=== PATIENT | female | born 1970 | race Caucasian/White ===

== ENCOUNTER 2021-07-04 11:07 | Day surgery (SDC) | payer MEDICAID ==
[2021-06-27 12:03] LABS: BASOPHILS # (AUTO) 0.1 X10'3 (0-0.2); EOSINOPHILS # (AUTO) 0.2 X10'3 (0-0.9); EOSINOPHILS % (AUTO) 2.5 % (0-6); LYMPHOCYTES # (AUTO) 1.8 X10'3 (1.1-4.8); LYMPHOCYTES % (AUTO) 27.6 % (21-51); MEAN CORPUSCULAR HEMOGLOBIN 28.1 PG (27.0-31.0); MEAN CORPUSCULAR HGB CONC 32.6 g/dL (33.0-36.5); MEAN CORPUSCULAR VOLUME 86.3 FL (78-98); MEAN PLATELET VOLUME 7.9 FL (7.4-10.4); MONOCYTES # (AUTO) 0.6 X10'3 (0-0.9); NEUTROPHILS # (AUTO) 3.8 X10'3 (1.8-7.7); NEUTROPHILS % (AUTO) 59.9 % (42-75); PRE OP HEMATOCRIT 37.9 % (35.0-45.0); PRE OP HEMOGLOBIN 12.4 g/dL (12.0-16.0); PRE OP PLATELET COUNT 411 X10'3 (140-440); RED CELL DISTRIBUTION WIDTH 14.2 % (11.5-14.5)
[2021-06-27 12:17] LABS: CLARITY,URINE CLEAR (Clear); COLOR,URINE YELLOW (Yellow); GLUCOSE, URINE NEGATIVE (Neg); KETONES,URINE NEGATIVE (Neg); LEUKOCYTE ESTERASE ,URINE NEGATIVE (Neg); NITRITES, URINE NEGATIVE (Neg); OCCULT BLOOD,URINE NEGATIVE (Neg); PH,URINE 6.5 (4.8-8.0); PROTEIN,URINE NEGATIVE (Neg); UROBILINOGEN,URINE 0.2 E.U/dL (0.2-1.0)
[2021-06-27 12:19] LABS: HCG SERUM QL NEGATIVE
[2021-06-27 12:34] LABS: UA COLLECTION TYPE CLN CATCH MIDSTREAM
[2021-06-27 12:48] LABS: ALBUMIN 3.5 G/DL (3.4-5.0); ALKALINE PHOSPHATASE 97 IU/L (46-116); BLOOD UREA NITROGEN 13 MG/DL (7-18); BUN/CREATININE RATIO 17.8 (6.6-38.0); CHLORIDE 104 MMOL/L (99-107); CREATININE 0.73 MG/DL (0.40-0.90); PRE OP ALT 18 U/L (30-65); PRE OP ANION GAP 8 (8-16); PRE OP AST 15 U/L (10-37); PRE OP BILIRUB, TOTAL 0.5 MG/DL (0.0-1.0); PRE OP GLUCOSE 79 MG/DL (70-104); PRE OP POTASSIUM 4.8 MMOL/L (3.4-5.1); PRE OP SODIUM 142 MMOL/L (135-145); TOTAL CARBON DIOXIDE 29.8 MMOL/L (24-32); TOTAL PROTEIN 7.1 G/DL (6.4-8.2); eGFR 84 ML/MIN
[2021-07-04] VITALS (8 sets, daily range): BP systolic 124–159; BP diastolic 79–90
[~2021-07-04] VITALS: Ht 160 cm; Wt 77.9 kg
[~2021-07-04 11:07] MED LIST: LEVO150T61 PO; LEVO175T37 PO; albuterol 2.5 MG/3 ML nebule NEB PRN; ceFOXitin 2GM-NS 100mL ADDvant 100 ML IV ONE; famotidine 20mg tablet PO ONE; ringers solution, lacted 1,000 ML IV SCH
[2021-07-04] MEDS ORDERED: HYDR-3972 PO (11:27)
[2021-07-04] MEDS ORDERED: fentaNYL/PF 50MCG/1 ML 2ML syringe IV PRN ×2 (13:05)
[2021-07-04] MEDS ORDERED: hydrALAZINE 20mg/ml inj. IV PRN (13:05)
[2021-07-04] MEDS ORDERED: ringers solution, lacted 1,000 ML IV SCH (13:05)
[2021-07-04] MEDS ORDERED: ondansetron/PF 4mg/2ml inj IV PRN (13:05)
[2021-07-04] MEDS ORDERED: morphine 4 MG/ML inj SYRINge IV PRN (13:05)
[2021-07-04] MEDS ORDERED: labetalol 20mg/4ml (5mg/ml) syringe IV PRN (13:05)
[2021-07-04] MEDS ORDERED: morphine 2 MG/ML inj. syringe IV PRN (13:05)
[2021-07-04] MEDS ORDERED: sevoflurane 250ml liquid IH ONE (14:00)
[2021-07-04] MEDS ORDERED: propofol inj 20 ML IV ONE (14:03)
[2021-07-04] MEDS ORDERED: midazolam 1 mg/ML 2ml injection ONE (14:03)
[2021-07-04] MEDS ORDERED: fentaNYL/PF 50MCG/1 ML 2ML syringe ONE (14:03)
[2021-07-04] MEDS ORDERED: LIDOcaine 2% (20mg/ml) 5ml vial ONE (14:03)
[2021-07-04] MEDS ORDERED: dexamethasone sod phosphate 4mg/ml inj. ONE (14:08)
[2021-07-04] MEDS ORDERED: ondansetron/PF 4mg/2ml inj ONE (14:08)
--- NOTE | 2021-07-04 15:03 | NUR ---
Received from OR via [facility], accompanied by Anesthesiologist Dr. Freeman and operating room nurse. Report given by Anesthesiolgi. Addendum: 07/04/21 at 1504 by Sahara Jin RN Amended: Links added.
--- NOTE | 2021-07-04 15:47 | NUR ---
I HAVE REVIEWED D/C INSTRUCTIONS WITH PATIENT AND THEY HAVE VERBALIZED UNDERSTANDING OF INSTRUCTIONS. pt ambulated to the bathroom and urinated without difficulty. peripad and mesh panties changed. pt mets all discharge criteria, Pt states she had pain medications at her pharmacy that was called in prior to the procedure by her doctor. pt advised to get these pain meds as soon as possible. PATIENT D/C HOME WITH ALL BELONGINGS AND FRIEND KYM GAVE TRANSPORT Addendum: 07/04/21 at 1621 by Sahara Jin RN Amended: Links added.
== END 2021-07-04 15:47 | disposition home or self-care (01) ==
LOC: PAS 11:07
PROVIDERS: ATTEND Obstetrics & Gynecology Obstetrics
DX: N92.1 Excessive and frequent menstruation with irregular cycle (principal); F41.9 Anxiety disorder, unspecified; F32.A Depression, unspecified; E03.9 Hypothyroidism, unspecified; G89.29 Other chronic pain; Z20.822 Contact with and (suspected) exposure to COVID-19; Z79.899 Other long term (current) drug therapy; Z98.51 Tubal ligation status; Z98.890 Other specified postprocedural states; Z88.2 Allergy status to sulfonamides; Z87.891 Personal history of nicotine dependence
CPT/HCPCS: 36415; 58563; 71046; 80053; 81003; 82948; 84703; 85025; 86885; 86900; 86901; 93005; J0694; J1100; J2250; J2270; J2405; J2704; J3010; J3490; J7030; J7120; U0003; U0005; Z7506; Z7512; A4355; A4618; A4649; A6258; A7000